=== PATIENT | female | born 1960 | race Caucasian/White ===

== ENCOUNTER 2022-07-06 21:31 | Inpatient (IN) ==
[2022-07-06] MEDS ORDERED: SODIUM CHLORIDE 0.9% 1000ML 1,000 ML IV ONE (21:59)
[2022-07-06] MEDS ORDERED: MoRPHine SULFATE 10 MG/ML CARP/VIAL IV STA (22:06)
[2022-07-06] MEDS ORDERED: PROMETHAZINE 25 MG/51 ML BAG IV STA (22:06)
[2022-07-06] MEDS ORDERED: ONDANSETRON INJ 2 MG/ML 2 ML VIAL IV STA (22:06)
--- NOTE | 2022-07-06 22:09 | Emergency Department Note ---
Impression & Plan Small bowel obstruction, Crohn's disease, Abdominal pain ED Provider Note NAME: ANABELL DAMICO AGE: 62 SEX: F : 1960 ARRIVES VIA: Walk-In INFORMANT: Patient ED PROVIDER(S): Kirt James DO CHIEF COMPLAINT: abdominal pain HPI: Patient is a 62-year-old female from [place] who presents to the ER for severe 10 out of 10 abdominal pain in the epigastric region associate with nausea and vomiting that started within the past 24 hours. History of Crohn's disease and multiple stents. Pain is constant. Denies any dysuria, urgency, or frequency. No other exacerbating or remitting factors. Chest pain or shortness of breath. This does feel like her previous bowel obstructions. ROS: See above HPI for pertinent positives & negatives. A total of 10 systems reviewed and were otherwise negative. PAST MEDICAL HISTORY:See Below PAST SURGICAL HISTORY:See Below FAMILY HISTORY:See Below SOCIAL HISTORY:See Below HOME MEDICATIONS:See Below ALLERGIES:See Below VITALS:See Below PHYSICAL EXAMINATION: GENERAL: Sitting up in bed, alert, vomiting EYE EXAM: normal conjunctiva. OROPHARYNX: Mucous membranes NECK: supple, no nuchal rigidity, no adenopathy, non-tender LUNGS: Clear to auscultation. Normal chest wall mechanics HEART: no murmurs, S1 normal and S2 normal ABDOMEN: abdomen soft, non-tender, normo-active bowel sounds, no masses, no rebound or guarding. UPPER EXTREMITIES: upper extremities are grossly normal. LOWER EXTREMITIES: No pitting edema. NEURO EXAM: Normal sensorium, cranial nerves II-XII grossly intact, normal speech, no gross weakness of arms, no gross weakness of legs. No drift. Finger to nose intact. Gross sensation intact. MEDICAL DECISION MAKING: Patient is a 8-year-old female who presents ER for abdominal pain nausea vomiting. IV was established blood work was obtained. Labs show no significant leukocytosis or anemia. BMP along with LFTs bilirubin lipase is unremarkable. UA was clean. Patient was positive for COVID. CT abdomen pelvis shows small bowel obstruction. This was discussed with Dr. Alonso reviewed with him in regards to the findings. He agreed with conservative management admission to the hospitalist. Discussed with hospitalist for further evaluation patient will be admitted for further work-up. She declined NG tube initially and was later agreeable when she spoke with the hospitalist. She was given IV fluids, morphine, Phenergan and Zofran. Triage Nursing notes reviewed. Limited review of prior medical records performed Vital Signs: reviewed and remarkable for tachy Differential diagnosis: Differential diagnoses includes but is not limited to gastritis, peptic ulcer disease, GERD, gallbladder disease, pancreatitis, small bowel obstruction, acute coronary syndrome, pericarditis, ischemic bowel, irritable bowel disease, irritable bowel syndrome, appendicitis, diverticulitis, malignancy, hernia, urinary tract infection, torsion, /ectopic (if female), perforation, trauma, infectious. ER treatment provided: See below Diagnostics interpreted by me: ECG: none Cardiac Monitoring: An order was placed for continuous cardiac monitoring. The monitor shows a rate of 90 with sinus rhythm. Laboratory studies: As stated above and show below. Imaging studies: CT abdomen pelvis shows small bowel obstruction Consultation(s): none Procedures: none Critical Care: None Past Med/Surg History Social History Smoking Status: Former smoker Preferred Language: [place] Feels Safe at Home: Yes Allergies Allergies Allergy/AdvReac Type Severity Reaction Status Date / Time No Known Allergies Allergy Unverified 07/06/22 23:32 Home Meds Home Medications Medication Instructions Recorded Confirmed L.acidophilus-B.animalis-B.longum 1 cap PO QAM 07/06/22 07/06/22 15 billion cell capsule (Florajen Digestion) azathioprine 50 mg tablet 150 mg PO QAM 07/06/22 07/06/22 calcium carbonate 600 mg calcium 600 mg PO HS 07/06/22 07/06/22 (1,500 mg) tablet calcium polycarbophil 625 mg 1,250 mg PO QAM 07/06/22 07/06/22 tablet (FiberCon) cholecalciferol (vitamin D3) 25 25 mcg PO HS 07/06/22 07/06/22 mcg (1,000 unit) chewable tablet (Vitamin D3) estradiol 0.5 mg tablet 0.5 mg PO QAM 07/06/22 07/06/22 folic acid 800 mcg tablet 0.8 mg PO HS 07/06/22 07/06/22 glucosamine-chondroitin 750 mg-600 1 tab PO HS 07/06/22 07/06/22 mg tablet lansoprazole 15 mg capsule,delayed 15 mg PO QAM 07/06/22 07/06/22 release levothyroxine 150 mcg tablet 150 mcg PO DAILYBB 07/06/22 07/06/22 omega-3 fatty acids 1,250 mg 1,250 mg PO HS 07/06/22 07/06/22 capsule polyethylene glycol 3350 17 17 g PO QAM 07/06/22 07/06/22 gram/dose oral powder (Miralax) pravastatin 40 mg tablet 40 mg PO HS 07/06/22 07/06/22 vedolizumab 300 mg intravenous 300 mg IV .EVERY 8 WEEKS 07/06/22 07/06/22 solution (Entyvio) Results & Data (ED) Vital Signs Vital Signs - 24 hr 07/06/22 21:33 07/06/22 22:45 Temperature 36.5 C Temperature Source Temporal Artery Scan Pulse Rate 104 H Pulse Rate [Apical] 91 H Respiratory Rate 20 16 Respiratory Effort / Characteristics Non-Labored Spontaneous Respiratory Depth Normal Respiratory Pattern Regular Blood Pressure 155/79 H Blood Pressure [Left Arm] 145/81 H Blood Pressure Mean 104 Blood Pressure Mean [Left Arm] 102 Blood Pressure Position Sitting Pulse Oximetry 95 96 Oxygen Delivery Method Room Air Room Air Sepsis Recent Fever Within 48 Hours No Sepsis New/Unexplained Change in Mental Status N/A Sepsis Action Taken by Nursing No Action Required Laboratory Data Result diagrams: 07/06/22 22:03 07/06/22 22:03 Lab Results 07/06/22 07/06/22 07/06/22 Range/Units 22:03 22:03 22:07 WBC 9.26 (4.8-10.8) K/ul RBC 4.72 (3.93-5.22) M/uL Hgb 14.4 (12.0-16.0) g/dl POC Hgb 15.3 (12.0-16.0) g/dl Hct 42.1 (34.1-44.9) % POC Hct 45 (37-47) % MCV 89.2 (80.0-100.0) fL MCH 30.5 (25.0-34.0) pg MCHC 34.2 (32.0-36.0) g/dL RDW Std Deviation 43.7 (36.4-46.3) fL RDW Coeff of Umair 13.2 (11.5-14.5) % Plt Count 230 (130-400) K/uL MPV 9.3 L (9.4-12.3) fL Immature Gran % (Auto) 0.4 % Neut % (Auto) 83.8 % Lymph % (Auto) 8.4 % [place] % (Auto) 6.4 % Eos % (Auto) 0.8 % Baso % (Auto) 0.2 % Neut # (Auto) 7.76 H (1.4-6.5) K/uL Lymph # (Auto) 0.78 L (1.2-3.4) K/uL [place] # (Auto) 0.59 (0.24-0.82) K/uL Eos # (Auto) 0.07 (0-0.50) K/uL Baso # (Auto) 0.02 (0-0.2) K/uL Immature Gran # (Auto) 0.04 H (0.00-0.02) K/uL POC Sodium 141 (135-144) mmol/L Sodium 140 (136-145) mmol/L POC Potassium 3.6 (3.3-5.0) mmol/L Potassium 3.6 (3.5-5.1) mmol/L POC Chloride 104 (101-112) mmol/L Chloride 103 (98-107) mmol/L Carbon Dioxide 24 (21-32) mmol/L POC Total CO2 24 (24-31) mmol/L Anion Gap 13 H (3-11) POC Anion Gap 18.0 (16-25) mmol/L POC BUN 15 (7-18) mg/dl BUN 15 (6-23) mg/dl Creatinine 0.85 (0.6-1.2) mg/dl POC Creatinine 0.8 (0.6-1.3) mg/dl Est Cr Clr Drug Dosing 82.2 ml/min Est GFR ( Amer) 86.3 ml/min Est GFR (Non-Af Amer) 74.5 ml/min BUN/Creatinine Ratio 17.6 (10-20) Glucose 100 H (70-99(Fasting)) mg/dl POC Glucose (other) 108 H (70-99) mg/dl Calcium 9.5 (8.5-10.1) mg/dl POC Ioniz Calcium Dona 1.16 (1.12-1.32) mmol/l Total Bilirubin 0.6 (0.2-1.0) mg/dl AST 38 (13-39) U/L ALT 40 (7-52) U/L Alkaline Phosphatase 57 (34-104) U/L Total Protein 7.5 (6.0-8.3) gm/dl Albumin 4.5 (3.4-5.0) gm/dl Globulin 3.0 (2.5-4.0) gm/dl Albumin/Globulin Ratio 1.5 (0.9-2) Lipase 19 (11-82) U/L Urine Color Urine Appearance (Clear) Urine pH (4.5-7.5) Ur Specific Jackson (1.000-1.030) Urine Protein (Negative) Urine Glucose (UA) (Negative) Urine Ketones (Negative) Urine Blood (Negative) Urine Nitrite (Negative) Urine Bilirubin (Negative) Urine Urobilinogen (Negative) Ur Leukocyte Esterase (Negative) Urine WBC (Auto) (0-5) /hpf Urine RBC (Auto) (0-4) /hpf U Hyaline Cast (Auto) (0-5) /lpf U Epithel Cells (Auto) (0-5) /lpf Urine Bacteria (Auto) (Negative) 07/06/22 Range/Units 22:46 WBC (4.8-10.8) K/ul RBC (3.93-5.22) M/uL Hgb (12.0-16.0) g/dl POC Hgb (12.0-16.0) g/dl Hct (34.1-44.9) % POC Hct (37-47) % MCV (80.0-100.0) fL MCH (25.0-34.0) pg MCHC (32.0-36.0) g/dL RDW Std Deviation (36.4-46.3) fL RDW Coeff of Umair (11.5-14.5) % Plt Count (130-400) K/uL MPV (9.4-12.3) fL Immature Gran % (Auto) % Neut % (Auto) % Lymph % (Auto) % [place] % (Auto) % Eos % (Auto) % Baso % (Auto) % Neut # (Auto) (1.4-6.5) K/uL Lymph # (Auto) (1.2-3.4) K/uL [place] # (Auto) (0.24-0.82) K/uL Eos # (Auto) (0-0.50) K/uL Baso # (Auto) (0-0.2) K/uL Immature Gran # (Auto) (0.00-0.02) K/uL POC Sodium (135-144) mmol/L Sodium (136-145) mmol/L POC Potassium (3.3-5.0) mmol/L Potassium (3.5-5.1) mmol/L POC Chloride (101-112) mmol/L Chloride (98-107) mmol/L Carbon Dioxide (21-32) mmol/L POC Total CO2 (24-31) mmol/L Anion Gap (3-11) POC Anion Gap (16-25) mmol/L POC BUN (7-18) mg/dl BUN (6-23) mg/dl Creatinine (0.6-1.2) mg/dl POC Creatinine (0.6-1.3) mg/dl Est Cr Clr Drug Dosing ml/min Est GFR ( Amer) ml/min Est GFR (Non-Af Amer) ml/min BUN/Creatinine Ratio (10-20) Glucose (70-99(Fasting)) mg/dl POC Glucose (other) (70-99) mg/dl Calcium (8.5-10.1) mg/dl POC Ioniz Calcium Dona (1.12-1.32) mmol/l Total Bilirubin (0.2-1.0) mg/dl AST (13-39) U/L ALT (7-52) U/L Alkaline Phosphatase (34-104) U/L Total Protein (6.0-8.3) gm/dl Albumin (3.4-5.0) gm/dl Globulin (2.5-4.0) gm/dl Albumin/Globulin Ratio (0.9-2) Lipase (11-82) U/L Urine Color Yellow Urine Appearance Clear (Clear) Urine pH 5.0 (4.5-7.5) Ur Specific Jackson 1.045 H (1.000-1.030) Urine Protein Negative (Negative) Urine Glucose (UA) Negative (Negative) Urine Ketones Negative (Negative) Urine Blood Trace H (Negative) Urine Nitrite Negative (Negative) Urine Bilirubin Negative (Negative) Urine Urobilinogen Negative (Negative) Ur Leukocyte Esterase Negative (Negative) Urine WBC (Auto) 1-5 (0-5) /hpf Urine RBC (Auto) 0-4 (0-4) /hpf U Hyaline Cast (Auto) 1-5 (0-5) /lpf U Epithel Cells (Auto) 5-10 H (0-5) /lpf Urine Bacteria (Auto) Negative (Negative) Administered Medications Discontinued Medications Sodium Chloride (Nss 1000ml) 1,000 mls @ 999 mls/hr IV .Q1H1M ONE Stop: 07/06/22 22:59 Last Infusion: 07/06/22 23:50 Dose: 0 mls/hr Documented By: Admin: 07/06/22 22:43 Dose: 999 mls/hr Documented By: JOHN Promethazine HCl (Phenergan) 25 mg in 51 mls @ 204 mls/hr IV NOW STA Stop: 07/06/22 22:20 Last Infusion: 07/06/22 23:09 Dose: 0 mls/hr Documented By: Admin: 07/06/22 22:43 Dose: 204 mls/hr Documented By: JOHN Acetaminophen (Ofirmev) 1,000 mg in 100 mls @ 400 mls/hr IV NOW STA Stop: 07/07/22 00:18 Last Infusion: 07/07/22 00:57 Dose: 0 mls/hr Documented By: Admin: 07/07/22 00:32 Dose: 400 mls/hr Documented By: JOHN Ioversol (Optiray 300 100ml) 93 ml IV ONCE ONE Stop: 07/06/22 22:29 Last Admin: 07/06/22 22:29 Dose: 93 ml Documented By: QUOC Ketorolac Tromethamine (Ketorolac Tromethamine 15 Mg/Ml Vial) 15 mg IV NOW ONE Stop: 07/07/22 00:05 Last Admin: 07/07/22 00:33 Dose: 15 mg Documented By: JOHN Morphine Sulfate (Morphine Sulfate 10 Mg/Ml Carp/Vial) 6 mg IV NOW STA Stop: 07/06/22 22:07 Last Admin: 07/06/22 22:20 Dose: 6 mg Documented By: JOHN Ondansetron HCl (Ondansetron Inj 2 Mg/Ml 2 Ml Vial) 4 mg IV NOW STA Stop: 07/06/22 22:07 Last Admin: 07/06/22 22:20 Dose: 4 mg Documented By: JOHN Imaging Data Radiologist's Impression: Abdomen/Pelvis CT 07/06/22 21:[address] WITH IV CONTRAST CT DOSE: 732.21 mGy.cm HISTORY: Acute generalized abdominal pain abd TECHNIQUE: Multiaxial CT images of the abdomen and pelvis were performed following the IV administration of 93 cc of Optiray, A dose lowering technique was utilized adhering to the principles of ALARA. COMPARISON STUDY: None. FINDINGS: Clear lung bases. No pneumatosis or pneumoperitoneum identified. The spleen, pancreas and adrenal glands are unremarkable. Cholecystectomy. Mild, duct dilation, likely postsurgical. Hepatic steatosis. No evidence of cirrhosis. Patent portal vein. 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 No urolith or hydronephrosis. Partial distention of the urinary bladder. Hysterectomy. No adnexal mass lesions. No abdominal aortic aneurysm or lymphadenopathy. The majority of the large bowel is decompressed. The appendix is not definitively seen. Mural fibrofatty changes of the terminal ileum which is also decompressed. There are a few dilated air and fluid-filled and stool-filled loops of small bowel within the lower abdomen and pelvis, the most dilated loop measuring 4.5 cm transversely on image 361. This just proximal to angular transition point within the abdominal left lower quadrant on image 307. Mild interloop edema. A few small bowel loops demonstrate mildly thickened rodríguez. Unremarkable soft tissues. No acute fracture. IMPRESSION: 1. At least moderate grade small bowel obstruction with transition point within the abdominal left lower quadrant, likely secondary to small bowel adhesions. 2. Mild interloop edema with a few loops of small bowel demonstrating mild wall thickening. 3. No pneumoperitoneum. 4. Hepatic steatosis. 5. Cholecystectomy. ACT 112: Negative or not required by law. The above report was generated using voice recognition software. It may contain grammatical, syntax or spelling errors. Electronically signed by: Gal Luciano M.D. 07/06/2022 10:58 PM Discharge Plan Visit Data Chief Complaint: Abdominal Pain Stated Complaint: BOWEL PROBLEMS ED Provider: Kirt James Discharge Problem: Small bowel obstruction, Crohn's disease, Abdominal pain Patient Disposition: Admitted As Inpatient Discharge Instructions Interventions: ED Discharge Assessment Last Done: 07/07/22 01:15
[2022-07-06 22:15] LABS: Basophils # (auto) 0.02 K/uL (0-0.2); Basophils % (auto) 0.2 %; Eosinophils # (auto) 0.07 K/uL (0-0.50); Eosinophils % (auto) 0.8 %; Hematocrit (blood only) 42.1 % (34.1-44.9); Hemoglobin 14.4 g/dl (12.0-16.0); Immature Granulocytes # (auto) 0.04 K/uL (0.00-0.02); Immature Granulocytes % (auto) 0.4 %; Lymphocytes # (auto) 0.78 K/uL (1.2-3.4); Lymphocytes % (auto) 8.4 %; Mean Corpuscular Hemoglobin 30.5 pg (25.0-34.0); Mean Corpuscular Hgb Conc 34.2 g/dL (32.0-36.0); Mean Corpuscular Volume 89.2 fL (80.0-100.0); Mean Platelet Volume 9.3 fL (9.4-12.3); Monocytes # (auto) 0.59 K/uL (0.24-0.82); Monocytes % (auto) 6.4 %; Neutrophils # (auto) 7.76 K/uL (1.4-6.5); Neutrophils % (auto) 83.8 %; Platelet Count 230 K/uL (130-400); RDW Coefficient of Variation 13.2 % (11.5-14.5); RDW Standard Deviation 43.7 fL (36.4-46.3); Red Blood Count 4.72 M/uL (3.93-5.22); White Blood Count 9.26 K/ul (4.8-10.8)
[2022-07-06 22:20] LABS: iSTAT Creatinine 0.8 mg/dl (0.6-1.3); iSTAT Hemoglobin 15.3 g/dl (12.0-16.0); iSTAT Ionized Calcium 1.16 mmol/l (1.12-1.32); iSTAT Potassium 3.6 mmol/L (3.3-5.0)
[2022-07-06] MEDS ORDERED: OPTIRAY 300 100mL IV ONE (22:28)
[2022-07-06 22:36] LABS: Albumin Globulin Ratio 1.5 (0.9-2); Albumin Level 4.5 gm/dl (3.4-5.0); BUN Creatinine Ratio 17.6 (10-20); Bilirubin,Total 0.6 mg/dl (0.2-1.0); Calcium 9.5 mg/dl (8.5-10.1); Creatinine Clr Calc Pharmacy 82.2 ml/min; Est GFR (African American) 86.3 ml/min; Est GFR (Non-African American) 74.5 ml/min; Potassium 3.6 mmol/L (3.5-5.1); Total Protein 7.5 gm/dl (6.0-8.3)
--- NOTE | 2022-07-06 23:00 | CT Scan Report ---
ABDOMEN AND PELVIS CT WITH IV CONTRAST CT DOSE: 732.21 mGy.cm HISTORY: Acute generalized abdominal pain abd TECHNIQUE: Multiaxial CT images of the abdomen and pelvis were performed following the IV administrat ion of 93 cc of Optiray, A dose lowering technique was utilized adhering to the principles of ALARA. COMPARISON STUDY: None. FINDINGS: Clear lung bases. No pneumatosis or pneumoperitoneum identified. The spleen, pancreas and a drenal glands are unremarkable. Cholecystectomy. Mild, duct dilation, likely postsurgical. Hepatic st eatosis. No evidence of cirrhosis. Patent portal vein. 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 No urolith or hydronephrosis. Partia l distention of the urinary bladder. Hysterectomy. No adnexal mass lesions. No abdominal aortic aneur ysm or lymphadenopathy. The majority of the large bowel is decompressed. The appendix is not definitively seen. Mural fibrofa tty changes of the terminal ileum which is also decompressed. There are a few dilated air and fluid-f illed and stool-filled loops of small bowel within the lower abdomen and pelvis, the most dilated loo p measuring 4.5 cm transversely on image 361. This just proximal to angular transition point within t he abdominal left lower quadrant on image 307. Mild interloop edema. A few small bowel loops demonstr ate mildly thickened rodríguez. Unremarkable soft tissues. No acute fracture. IMPRESSION: 1. At least moderate grade small bowel obstruction with transition point within the abdominal left lo wer quadrant, likely secondary to small bowel adhesions. 2. Mild interloop edema with a few loops of small bowel demonstrating mild wall thickening. 3. No pneumoperitoneum. 4. Hepatic steatosis. 5. Cholecystectomy. ACT 112: Negative or not required by law. The above report was generated using voice recognition software. It may contain grammatical, syntax o r spelling errors. Electronically signed by: Gal Luciano M.D. 07/06/2022 10:58 PM
[2022-07-06 23:08] LABS: Appearance Urine Clear (Clear); Bacteria Urine Automated Negative (Negative); Bilirubin Urine Negative (Negative); Blood Urine Trace (Negative); Color Urine Yellow; Glucose Urine UA Negative (Negative); Ketones Urine Negative (Negative); Leukocyte Esterase Urine Negative (Negative); Nitrite Urine Negative (Negative); Protein Urine Negative (Negative); RBC Urine Automated 0-4 /hpf (0-4); Specific Gravity Urine 1.045 (1.000-1.030); Urobilinogen Urine Negative (Negative)
--- NOTE | 2022-07-06 23:34 | History & Physical Report ---
Date of Service July 06, 2022 Assessment & Plan (1) Small bowel obstruction: Plan: This is 62-year-old female with a history of Crohn's disease, appendectomy, cholecystectomy, hysterectomy, known abdominal adhesions, prior SBOs, hypothyroidism per her report who presented to [facility] for evaluation of abdominal pain, subsequently found to have moderate-grade SBO on CT-A/P likely secondary to abdominal adhersions. Small Bowel Obstruction Patient with significant history of prior SBOs at home, appendectomy, cholecystectomy, hysterectomy, Crohn's disease, and known abdominal adhesions Contrast-enhanced CT of the abdomen and pelvis demonstrated moderate grade small bowel obstruction with transition point within the left lower quadrant, interloop edema. Status post NG tube placement in the ED, continue on low intermittent suction Consult general surgery (spoken to by ED provider) Pain control: Tylenol 1 g every 8 LEO, Toradol 15 every 6 PRN, morphine 4 mg for breakthrough pain PRN LR @ 100cc/hr N.p.o. Monitor electrolytes, replete PRN (2) Crohn's disease: Plan: Controlled on Entyvio every 8 weeks, as well as azathioprine Hold medications while n.p.o. (3) Hypothyroid: Plan: Hold levothyroxine, resume when able (4) Hyperlipidemia: Plan: Hold pravastatin while n.p.o. Patient dose have known history of NAFLD Plan Code: Full code Dispo: MedSurg Prophylaxis: SCDsof note, patient is on estradiol 0.5 mg daily Diet: Strict n.p.o., NG tube in place Consults: General surgery History of Present Illness Primary Care Provider: NO PCP This is 62-year-old female with a history of Crohn's disease, appendectomy, cholecystectomy, hysterectomy, known abdominal adhesions, prior SBOs, hypothyroidism per her report who presented to [facility] for evaluation of abdominal pain. Patient says that beginning last night, she began having twinges of abdominal pain and intermittent nausea. She was up visiting with her parents for the football game this weekend, when she gradually developed a worse and worse abdominal pain. She said that prior to coming in, it was near a 10 out of 10. Unfortunately, she reports a history of multiple small bowel obstructions; at her local ED at home, she is normally able to receive pain medications and be discharged from the ED without being admitted. This time, however, despite pain medications received in the ED, she continues to have abdominal pain and nausea. The pain is generalized. Her last bowel movement was yesterday. She denies any recent fevers, chills, night sweats, chest pain, palpitations, shortness of breath, urinary issues, bowel issues. Medications reviewed and include azathioprine, calcium carbonate, FiberCon, vitamin D3, estradiol, folic acid, glucosamine, probiotic, lansoprazole, levothyroxine, fish oil, MiraLAX, pravastatin, Entyvio every 8 weeks. She denies regular use of alcohol. She had 2 alcoholic beverages earlier today. She denies use of recreational drugs or tobacco products. In the ED, patient was found to be mildly hypertensive with a heart rate of 104. Afebrile. Labs demonstrated mildly elevated anion gap at 13, but otherwise without significant abnormalities. Contrast-enhanced CT of the abdomen and pelvis demonstrated moderate grade small bowel obstruction with transition point within the left lower quadrant, interloop edema. She was given Zofran, morphine, 1 L NSS, promethazine. ED provider spoke with on-call general surgery, who agreed to see patient in the morning. After speaking with her more, she was amenable to receive an NG tube. Patient did mention to me that this will likely be the last game her parents are able to go to, and would optimally like to leave as soon as medically stable and pain is under control. Allergies Allergy/AdvReac Type Severity Reaction Status Date / Time No Known Allergies Allergy Unverified 07/06/22 23:32 Home Medications Medication Instructions Recorded Confirmed Type L.acidophilus-B.animalis-B.longum 1 cap PO QAM 07/06/22 07/06/22 History 15 billion cell capsule (Florajen Digestion) azathioprine 50 mg tablet 150 mg PO QAM 07/06/22 07/06/22 History calcium carbonate 600 mg calcium 600 mg PO HS 07/06/22 07/06/22 History (1,500 mg) tablet calcium polycarbophil 625 mg 1,250 mg PO QAM 07/06/22 07/06/22 History tablet (FiberCon) cholecalciferol (vitamin D3) 25 25 mcg PO HS 07/06/22 07/06/22 History mcg (1,000 unit) chewable tablet (Vitamin D3) estradiol 0.5 mg tablet 0.5 mg PO QAM 07/06/22 07/06/22 History folic acid 800 mcg tablet 0.8 mg PO HS 07/06/22 07/06/22 History glucosamine-chondroitin 750 mg-600 1 tab PO HS 07/06/22 07/06/22 History mg tablet lansoprazole 15 mg capsule,delayed 15 mg PO QAM 07/06/22 07/06/22 History release levothyroxine 150 mcg tablet 150 mcg PO DAILYBB 07/06/22 07/06/22 History omega-3 fatty acids 1,250 mg 1,250 mg PO HS 07/06/22 07/06/22 History capsule polyethylene glycol 3350 17 17 g PO QAM 07/06/22 07/06/22 History gram/dose oral powder (Miralax) pravastatin 40 mg tablet 40 mg PO HS 07/06/22 07/06/22 History vedolizumab 300 mg intravenous 300 mg IV .EVERY 8 WEEKS 07/06/22 07/06/22 History solution (Entyvio) Past Med/Surg History Social History Smoking Status: Former smoker Preferred Language: Luxembourgish Feels Safe at Home: Yes Review of Systems Review of Systems: as per HPI Physical Exam Physical Exam: General: 62-year old female who is alert, oriented, and appears in mild distress secondary to abdominal discomfort. HEENT: NCAT. - Eyes - Sclera are white, anicteric, and without injection. - Mouth - MMM - Neck - supple, no appreciable JVD Cardiac: Normal rate and regular rhythm; S1 and S2 present with no murmurs, rubs, or gallops. Pulmonary: Good respiratory effort with symmetric expansion of the chest. No use of accessory muscles. Lungs were clear to auscultation bilaterally with no crackles or wheezes. Abdominal: Normoactive bowel sounds. Abdomen was soft, nondistended. Mild TTP in the LLQ/suprapubic area. Extremities: Upper and lower extremities are warm and well perfused. 60 peripheral edema in the lower extremities bilaterally Psych: Well-developed, well-nourished, appropriately dressed for occasion. Behavior is cooperative and appropriate. Affect is WNL. Insight is appropriate. Results & Data Results & Data ([facility]) Vital Signs (Past 12 Hours) Vital Signs Temp Pulse Pulse Resp BP Pulse Ox O2 Del Method 07/06/22 22:45 91 H 16 96 Room Air 07/06/22 21:33 36.5 C 104 H 20 155/79 H 95 Room Air Resident Activity Tracking Resident Involvement: Resident Care Provided Care Provided: Adult Hospital Medicine
[2022-07-07] MEDS ORDERED: KETOROLAC TROMETHAMINE 15 MG/ML VIAL IV ONE (00:04)
[2022-07-07] MEDS ORDERED: ACETAMINOPHEN 1,000 MG/100 ML VIAL IV STA (00:04)
[2022-07-07] MEDS ORDERED: LACTATED RINGER'S 1,000 ML IV SCH (00:15)
[2022-07-07] MEDS ORDERED: ONDANSETRON INJ 2 MG/ML 2 ML VIAL IV PRN (01:36)
[2022-07-07] MEDS ORDERED: MoRPHine SULFATE 4 MG/ML 1 ML CARP\\VIAL IV PRN ×2 (01:36→07:18)
[2022-07-07] MEDS ORDERED: KETOROLAC TROMETHAMINE 15 MG/ML VIAL IV PRN (01:36)
--- NOTE | 2022-07-07 03:45 | Billing Data ---
Date of Service July 06, 2022 Coding Level of Care Code 38066 Initial Inpt Care Lvl 2
[2022-07-07] MEDS ORDERED: MoRPHine SULFATE 2 MG/ML CARP IV PRN (07:18)
--- NOTE | 2022-07-07 07:18 | Hospitalist Progress Note ---
Date of Service July 07, 2022 Assessment & Plan (1) Small bowel obstruction: Plan: This is 62-year-old female with a history of Crohn's disease, appendectomy, cholecystectomy, hysterectomy, known abdominal adhesions, prior SBOs, hypothyroidism per her report who presented to [facility] for evaluation of abdominal pain, subsequently found to have moderate-grade SBO on CT-A/P likely secondary to abdominal adhersions. Small Bowel Obstruction Patient with significant history of prior SBOs at home, appendectomy, cholecystectomy, hysterectomy, Crohn's disease, and known abdominal adhesions Contrast-enhanced CT of the abdomen and pelvis demonstrated moderate grade small bowel obstruction with transition point within the left lower quadrant, interloop edema. Status post NG tube placement in the ED, continue on low intermittent suction Consult general surgery (spoken to by ED provider) Pain control: Tylenol 1 g every 8 LEO, Toradol 15 every 6 PRN, morphine 4 mg for breakthrough pain PRN LR @ 100cc/hr N.p.o. Monitor electrolytes, replete PRN (2) Crohn's disease: Plan: Controlled on Entyvio every 8 weeks, as well as azathioprine Hold medications while n.p.o. (3) Hypothyroid: Plan: Hold levothyroxine, resume when able (4) Hyperlipidemia: Plan: Hold pravastatin while n.p.o. Patient dose have known history of NAFLD Plan Code: Full code Dispo: MedSurg Prophylaxis: SCDsof note, patient is on estradiol 0.5 mg daily Diet: Strict n.p.o., NG tube in place Consults: General surgery Admission and Anticipated Discharge Date Admission Date: July 06, 2022 Results & Data Results & Data ([facility]) Vital Signs (Past 12 Hours) Vital Signs Temp Pulse Pulse Pulse Resp BP BP 07/07/22 01:20 07/07/22 01:20 07/07/22 01:20 98.4 F 115 H 18 128/81 07/07/22 01:13 87 16 129/65 07/07/22 00:00 100 H 17 122/101 H 07/06/22 22:45 91 H 16 145/81 H 07/06/22 21:33 97.7 F 104 H 20 155/79 H Pulse Ox O2 Del Method 07/07/22 01:20 Room Air 09/10/22 01:20 Room Air 07/07/22 01:20 98 Room Air 07/07/22 01:13 95 07/07/22 00:00 96 Room Air 07/06/22 22:45 96 Room Air 07/06/22 21:33 95 Room Air PG Care Time/CCT Total # of Minutes Spent Total Time Spent with Patient: Total time spent is greater than 50% in coordination of care (as documented) at patient's floor/unit and/or counseling patient: Coding Diagnoses Small bowel obstruction K56.609 Crohn's disease K50.90 Hypothyroid E03.9 Hyperlipidemia E78.5
[2022-07-07] MEDS ORDERED: ACETAMINOPHEN 1,000 MG/100 ML VIAL IV SCH (08:00)
--- NOTE | 2022-07-07 08:11 | XRay Report ---
KUB CLINICAL HISTORY: NGT placement COMPARISON STUDY: CT of the abdomen and pelvis July 06, 2022. FINDINGS: The tip of the nasogastric tube is within the body of the stomach. There is contrast within the collecting systems, ureters and bladder from recent contrast-enhanced CT. There are suspected fl uid-filled dilated loops of small bowel, better depicted on CT. IMPRESSION: 1. Tip of nasogastric tube within the body of the stomach. 2. Suspected fluid-filled dilated loops of small bowel, better depicted on CT. ACT 112: Negative or not required by law. Electronically signed by: Bryant Fagan M.D. 07/07/2022 8:09 AM
[2022-07-07 08:44] LABS: Basophils # (auto) 0.01 K/uL (0-0.2); Basophils % (auto) 0.2 %; Eosinophils # (auto) 0.03 K/uL (0-0.50); Eosinophils % (auto) 0.6 %; Hematocrit (blood only) 37.9 % (34.1-44.9); Hemoglobin 12.8 g/dl (12.0-16.0); Immature Granulocytes # (auto) 0.03 K/uL (0.00-0.02); Immature Granulocytes % (auto) 0.6 %; Lymphocytes # (auto) 0.17 K/uL (1.2-3.4); Lymphocytes % (auto) 3.3 %; Mean Corpuscular Hemoglobin 30.1 pg (25.0-34.0); Mean Corpuscular Hgb Conc 33.8 g/dL (32.0-36.0); Mean Corpuscular Volume 89.2 fL (80.0-100.0); Mean Platelet Volume 9.6 fL (9.4-12.3); Monocytes # (auto) 0.75 K/uL (0.24-0.82); Monocytes % (auto) 14.7 %; Neutrophils # (auto) 4.12 K/uL (1.4-6.5); Neutrophils % (auto) 80.6 %; Platelet Count 175 K/uL (130-400); RDW Coefficient of Variation 13.9 % (11.5-14.5); Red Blood Count 4.25 M/uL (3.93-5.22); White Blood Count 5.11 K/ul (4.8-10.8)
[2022-07-07 09:02] LABS: Albumin Globulin Ratio 1.6 (0.9-2); Albumin Level 3.8 gm/dl (3.4-5.0); BUN Creatinine Ratio 26.3 (10-20); Bilirubin,Total 0.6 mg/dl (0.2-1.0); Calcium 8.4 mg/dl (8.5-10.1); Creatinine Clr Calc Pharmacy 87.2 ml/min; Est GFR (African American) 92.9 ml/min; Est GFR (Non-African American) 80.1 ml/min; Globulin 2.4 gm/dl (2.5-4.0); Magnesium 1.3 mg/dl (1.7-2.4); Phosphorus 3.7 mg/dl (2.5-4.9); Potassium 3.7 mmol/L (3.5-5.1); Total Protein 6.2 gm/dl (6.0-8.3)
[2022-07-07] MEDS ORDERED: ALUMINUM/MAGNESIUM SUSP 30 ML UDC PO STA (11:26)
--- NOTE | 2022-07-07 13:03 | Surgery Consultation ---
Date of Consultation July 07, 2022 Assessment & Plan (1) Crohn's disease: (2) Small bowel obstruction: (3) Asymptomatic COVID-19 virus infection: Plan 8-year-old woman with a longstanding history of partial adhesive small bowel obstructions due to prior surgical history presents with a small bowel obstruction. She has had 2 large bowel movements and is passing flatus since yesterday evening. She has been advanced to clears. We will advance her diet as tolerated. She is anxious to return home. If she does well with food, we will discharge her later on this afternoon. History of Present Illness Reason for Consultation: Small bowel obstruction/Crohn's disease Requesting Physician: Kirt James MD Attending Physician: Yeyo Lomas MD History of Present Illness 62-year-old woman presents with nausea, vomiting, and pain in her abdomen. She has an extensive surgical history dating back to when she was 17 years old. Perforated appendicitis, subsequent hysterectomy, and has had multiple partial to complete small bowel obstructions in the past due to adhesions. The majority of these have resolved with conservative management. She denies fevers or chills. The pain came on suddenly yesterday. Of note, she tested positive for COVID in the emergency department. She has no symptoms of fevers, chills, shortness of breath, chest pain, runny nose, cough, sore throat. Upon seeing her this morning, she has passed 2 large bowel movements and the pain has resolved. Allergies Allergy/AdvReac Type Severity Reaction Status Date / Time No Known Allergies Allergy Unverified 07/06/22 23:32 Home Medications Medication Instructions Recorded Confirmed Type L.acidophilus-B.animalis-B.longum 1 cap PO QAM 07/06/22 07/06/22 History 15 billion cell capsule (Florajen Digestion) azathioprine 50 mg tablet 150 mg PO QAM 07/06/22 07/06/22 History calcium carbonate 600 mg calcium 600 mg PO HS 07/06/22 07/06/22 History (1,500 mg) tablet calcium polycarbophil 625 mg 1,250 mg PO QAM 07/06/22 07/06/22 History tablet (FiberCon) cholecalciferol (vitamin D3) 25 25 mcg PO HS 07/06/22 07/06/22 History mcg (1,000 unit) chewable tablet (Vitamin D3) estradiol 0.5 mg tablet 0.5 mg PO QAM 07/06/22 07/06/22 History folic acid 800 mcg tablet 0.8 mg PO HS 07/06/22 07/06/22 History glucosamine-chondroitin 750 mg-600 1 tab PO HS 07/06/22 07/06/22 History mg tablet lansoprazole 15 mg capsule,delayed 15 mg PO QAM 07/06/22 07/06/22 History release levothyroxine 150 mcg tablet 150 mcg PO DAILYBB 07/06/22 07/06/22 History omega-3 fatty acids 1,250 mg 1,250 mg PO HS 07/06/22 07/06/22 History capsule polyethylene glycol 3350 17 17 g PO QAM 07/06/22 07/06/22 History gram/dose oral powder (Miralax) pravastatin 40 mg tablet 40 mg PO HS 07/06/22 07/06/22 History vedolizumab 300 mg intravenous 300 mg IV .EVERY 8 WEEKS 07/06/22 07/06/22 History solution (Entyvio) Patient History Medical History Crohn's disease Hyperlipidemia Hypothyroid Small bowel obstruction Surgical History History of appendectomy History of cholecystectomy History of hysterectomy Social History Smoking Status: Former smoker Cigarettes Per Day: 10; Smoking End Date: 30 years ago.; Second Hand Exposure: No; Do You Dip or Chew Tobacco: No; Tobacco Cessation Education Requested by Patient: No Hx Alcohol Use: Yes Alcohol type: wine Hx Substance Use: No Preferred Language: Niuean Communication Ability: Effective Adobe Cq Developer Required: No Beliefs That Will Affect Care: None Current Living Situation: Spouse Other Information That Helps Us Care for You: No Feels Safe at Home: Yes Safety Concerns: Feels Safe At This Time Assistive Devices: Contacts Review of Systems Review of Systems: All systems reviewed & are unremarkable except as noted in HPI & below Physical Exam Constitutional: WD/WN, vitals as above Neck: trachea midline, no thyromegaly Respiratory: normal respiratory effort; no respiratory distress and no labored breathing Cardiovascular: Rate/Rhythm: regular rate and regular rhythm Gastrointestinal (Abdomen): Inspection/Auscultation: abdomen normal to inspection; abdomen not distended Percussion/Palpation: abdomen soft; abdomen nontender, no guarding and abdomen not rigid Musculoskeletal: Extremities: no cyanosis and no clubbing Skin: no rashes, warm and dry Psychiatric: A+Ox3, euthymic affect Results & Data ([facility]) Vital Signs (Past 12 Hours) Vital Signs Temp Pulse Pulse Resp BP Pulse Ox O2 Del Method 07/07/22 08:20 36.9 C 114 H 16 110/71 93 Room Air 07/07/22 01:20 Room Air 07/07/22 01:20 Room Air 07/07/22 01:20 36.9 C 115 H 18 128/81 98 Room Air 07/07/22 01:13 87 16 129/65 95 Laboratory Results 07/07/22 07/07/22 07/07/22 Range/Units 07:55 07:55 00:36 WBC 5.11 (4.8-10.8) K/ul RBC 4.25 (3.93-5.22) M/uL Hgb 12.8 (12.0-16.0) g/dl POC Hgb (12.0-16.0) g/dl Hct 37.9 (34.1-44.9) % POC Hct (37-47) % MCV 89.2 (80.0-100.0) fL MCH 30.1 (25.0-34.0) pg MCHC 33.8 (32.0-36.0) g/dL RDW Std Deviation 45.0 (36.4-46.3) fL RDW Coeff of Umair 13.9 (11.5-14.5) % Plt Count 175 (130-400) K/uL MPV 9.6 (9.4-12.3) fL Immature Gran % (Auto) 0.6 % Neut % (Auto) 80.6 % Lymph % (Auto) 3.3 % Frontier % (Auto) 14.7 % Eos % (Auto) 0.6 % Baso % (Auto) 0.2 % Neut # (Auto) 4.12 (1.4-6.5) K/uL Lymph # (Auto) 0.17 L (1.2-3.4) K/uL Frontier # (Auto) 0.75 (0.24-0.82) K/uL Eos # (Auto) 0.03 (0-0.50) K/uL Baso # (Auto) 0.01 (0-0.2) K/uL Immature Gran # (Auto) 0.03 H (0.00-0.02) K/uL POC Sodium (135-144) mmol/L Sodium 140 (136-145) mmol/L POC Potassium (3.3-5.0) mmol/L Potassium 3.7 (3.5-5.1) mmol/L POC Chloride (101-112) mmol/L Chloride 104 (98-107) mmol/L Carbon Dioxide 27 (21-32) mmol/L POC Total CO2 (24-31) mmol/L Anion Gap 9 (3-11) POC Anion Gap (16-25) mmol/L POC BUN (7-18) mg/dl BUN 21 (6-23) mg/dl Creatinine 0.80 (0.6-1.2) mg/dl POC Creatinine (0.6-1.3) mg/dl Est Cr Clr Drug Dosing 87.2 ml/min Est GFR ( Amer) 92.9 ml/min Est GFR (Non-Af Amer) 80.1 ml/min BUN/Creatinine Ratio 26.3 H (10-20) Glucose 111 H (70-99(Fasting)) mg/dl POC Glucose (other) (70-99) mg/dl Calcium 8.4 L (8.5-10.1) mg/dl POC Ioniz Calcium Dona (1.12-1.32) mmol/l Phosphorus 3.7 (2.5-4.9) mg/dl Magnesium 1.3 L (1.7-2.4) mg/dl Total Bilirubin 0.6 (0.2-1.0) mg/dl AST 35 (13-39) U/L ALT 38 (7-52) U/L Alkaline Phosphatase 39 (34-104) U/L Total Protein 6.2 (6.0-8.3) gm/dl Albumin 3.8 (3.4-5.0) gm/dl Globulin 2.4 L (2.5-4.0) gm/dl Albumin/Globulin Ratio 1.6 (0.9-2) Lipase (11-82) U/L Urine Color Urine Appearance (Clear) Urine pH (4.5-7.5) Ur Specific [place] (1.000-1.030) Urine Protein (Negative) Urine Glucose (UA) (Negative) Urine Ketones (Negative) Urine Blood (Negative) Urine Nitrite (Negative) Urine Bilirubin (Negative) Urine Urobilinogen (Negative) Ur Leukocyte Esterase (Negative) Urine WBC (Auto) (0-5) /hpf Urine RBC (Auto) (0-4) /hpf U Hyaline Cast (Auto) (0-5) /lpf U Epithel Cells (Auto) (0-5) /lpf Urine Bacteria (Auto) (Negative) SARS-CoV-2, RNA, NAAT POSITIVE A* (NEGATIVE) 07/06/22 07/06/22 07/06/22 Range/Units 22:46 22:07 22:03 WBC (4.8-10.8) K/ul RBC (3.93-5.22) M/uL Hgb (12.0-16.0) g/dl POC Hgb 15.3 (12.0-16.0) g/dl Hct (34.1-44.9) % POC Hct 45 (37-47) % MCV (80.0-100.0) fL MCH (25.0-34.0) pg MCHC (32.0-36.0) g/dL RDW Std Deviation (36.4-46.3) fL RDW Coeff of Umair (11.5-14.5) % Plt Count (130-400) K/uL MPV (9.4-12.3) fL Immature Gran % (Auto) % Neut % (Auto) % Lymph % (Auto) % Frontier % (Auto) % Eos % (Auto) % Baso % (Auto) % Neut # (Auto) (1.4-6.5) K/uL Lymph # (Auto) (1.2-3.4) K/uL Frontier # (Auto) (0.24-0.82) K/uL Eos # (Auto) (0-0.50) K/uL Baso # (Auto) (0-0.2) K/uL Immature Gran # (Auto) (0.00-0.02) K/uL POC Sodium 141 (135-144) mmol/L Sodium 140 (136-145) mmol/L POC Potassium 3.6 (3.3-5.0) mmol/L Potassium 3.6 (3.5-5.1) mmol/L POC Chloride 104 (101-112) mmol/L Chloride 103 (98-107) mmol/L Carbon Dioxide 24 (21-32) mmol/L POC Total CO2 24 (24-31) mmol/L Anion Gap 13 H (3-11) POC Anion Gap 18.0 (16-25) mmol/L POC BUN 15 (7-18) mg/dl BUN 15 (6-23) mg/dl Creatinine 0.85 (0.6-1.2) mg/dl POC Creatinine 0.8 (0.6-1.3) mg/dl Est Cr Clr Drug Dosing 82.2 ml/min Est GFR ( Amer) 86.3 ml/min Est GFR (Non-Af Amer) 74.5 ml/min BUN/Creatinine Ratio 17.6 (10-20) Glucose 100 H (70-99(Fasting)) mg/dl POC Glucose (other) 108 H (70-99) mg/dl Calcium 9.5 (8.5-10.1) mg/dl POC Ioniz Calcium Dona 1.16 (1.12-1.32) mmol/l Phosphorus (2.5-4.9) mg/dl Magnesium (1.7-2.4) mg/dl Total Bilirubin 0.6 (0.2-1.0) mg/dl AST 38 (13-39) U/L ALT 40 (7-52) U/L Alkaline Phosphatase 57 (34-104) U/L Total Protein 7.5 (6.0-8.3) gm/dl Albumin 4.5 (3.4-5.0) gm/dl Globulin 3.0 (2.5-4.0) gm/dl Albumin/Globulin Ratio 1.5 (0.9-2) Lipase 19 (11-82) U/L Urine Color Yellow Urine Appearance Clear (Clear) Urine pH 5.0 (4.5-7.5) Ur Specific [place] 1.045 H (1.000-1.030) Urine Protein Negative (Negative) Urine Glucose (UA) Negative (Negative) Urine Ketones Negative (Negative) Urine Blood Trace H (Negative) Urine Nitrite Negative (Negative) Urine Bilirubin Negative (Negative) Urine Urobilinogen Negative (Negative) Ur Leukocyte Esterase Negative (Negative) Urine WBC (Auto) 1-5 (0-5) /hpf Urine RBC (Auto) 0-4 (0-4) /hpf U Hyaline Cast (Auto) 1-5 (0-5) /lpf U Epithel Cells (Auto) 5-10 H (0-5) /lpf Urine Bacteria (Auto) Negative (Negative) SARS-CoV-2, RNA, NAAT (NEGATIVE) 07/06/22 Range/Units 22:03 WBC 9.26 (4.8-10.8) K/ul RBC 4.72 (3.93-5.22) M/uL Hgb 14.4 (12.0-16.0) g/dl POC Hgb (12.0-16.0) g/dl Hct 42.1 (34.1-44.9) % POC Hct (37-47) % MCV 89.2 (80.0-100.0) fL MCH 30.5 (25.0-34.0) pg MCHC 34.2 (32.0-36.0) g/dL RDW Std Deviation 43.7 (36.4-46.3) fL RDW Coeff of Umair 13.2 (11.5-14.5) % Plt Count 230 (130-400) K/uL MPV 9.3 L (9.4-12.3) fL Immature Gran % (Auto) 0.4 % Neut % (Auto) 83.8 % Lymph % (Auto) 8.4 % Frontier % (Auto) 6.4 % Eos % (Auto) 0.8 % Baso % (Auto) 0.2 % Neut # (Auto) 7.76 H (1.4-6.5) K/uL Lymph # (Auto) 0.78 L (1.2-3.4) K/uL Frontier # (Auto) 0.59 (0.24-0.82) K/uL Eos # (Auto) 0.07 (0-0.50) K/uL Baso # (Auto) 0.02 (0-0.2) K/uL Immature Gran # (Auto) 0.04 H (0.00-0.02) K/uL POC Sodium (135-144) mmol/L Sodium (136-145) mmol/L POC Potassium (3.3-5.0) mmol/L Potassium (3.5-5.1) mmol/L POC Chloride (101-112) mmol/L Chloride (98-107) mmol/L Carbon Dioxide (21-32) mmol/L POC Total CO2 (24-31) mmol/L Anion Gap (3-11) POC Anion Gap (16-25) mmol/L POC BUN (7-18) mg/dl BUN (6-23) mg/dl Creatinine (0.6-1.2) mg/dl POC Creatinine (0.6-1.3) mg/dl Est Cr Clr Drug Dosing ml/min Est GFR ( Amer) ml/min Est GFR (Non-Af Amer) ml/min BUN/Creatinine Ratio (10-20) Glucose (70-99(Fasting)) mg/dl POC Glucose (other) (70-99) mg/dl Calcium (8.5-10.1) mg/dl POC Ioniz Calcium Dona (1.12-1.32) mmol/l Phosphorus (2.5-4.9) mg/dl Magnesium (1.7-2.4) mg/dl Total Bilirubin (0.2-1.0) mg/dl AST (13-39) U/L ALT (7-52) U/L Alkaline Phosphatase (34-104) U/L Total Protein (6.0-8.3) gm/dl Albumin (3.4-5.0) gm/dl Globulin (2.5-4.0) gm/dl Albumin/Globulin Ratio (0.9-2) Lipase (11-82) U/L Urine Color Urine Appearance (Clear) Urine pH (4.5-7.5) Ur Specific [place] (1.000-1.030) Urine Protein (Negative) Urine Glucose (UA) (Negative) Urine Ketones (Negative) Urine Blood (Negative) Urine Nitrite (Negative) Urine Bilirubin (Negative) Urine Urobilinogen (Negative) Ur Leukocyte Esterase (Negative) Urine WBC (Auto) (0-5) /hpf Urine RBC (Auto) (0-4) /hpf U Hyaline Cast (Auto) (0-5) /lpf U Epithel Cells (Auto) (0-5) /lpf Urine Bacteria (Auto) (Negative) SARS-CoV-2, RNA, NAAT (NEGATIVE) Diagnostic Findings ABDOMEN AND PELVIS CT WITH IV CONTRAST CT DOSE: 732.21 mGy.cm HISTORY: Acute generalized abdominal pain abd TECHNIQUE: Multiaxial CT images of the abdomen and pelvis were performed following the IV administration of 93 cc of Optiray, A dose lowering technique was utilized adhering to the principles of ALARA. COMPARISON STUDY: None. FINDINGS: Clear lung bases. No pneumatosis or pneumoperitoneum identified. The spleen, pancreas and adrenal glands are unremarkable. Cholecystectomy. Mild, duct dilation, likely postsurgical. Hepatic steatosis. No evidence of cirrhosis. Patent portal vein. 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 No urolith or hydronephrosis. Partial distention of the urinary bladder. Hysterectomy. No adnexal mass lesions. No abdominal aortic aneurysm or lymphadenopathy. The majority of the large bowel is decompressed. The appendix is not definitively seen. Mural fibrofatty changes of the terminal ileum which is also decompressed. There are a few dilated air and fluid-filled and stool-filled loops of small bowel within the lower abdomen and pelvis, the most dilated loop measuring 4.5 cm transversely on image 361. This just proximal to angular transition point within the abdominal left lower quadrant on image 307. Mild interloop edema. A few small bowel loops demonstrate mildly thickened rodríguez. Unremarkable soft tissues. No acute fracture. IMPRESSION: 1. At least moderate grade small bowel obstruction with transition point within the abdominal left lower quadrant, likely secondary to small bowel adhesions. 2. Mild interloop edema with a few loops of small bowel demonstrating mild wall thickening. 3. No pneumoperitoneum. 4. Hepatic steatosis. 5. Cholecystectomy.
--- NOTE | 2022-07-07 17:35 | Discharge Summary ---
Date of Service July 07, 2022 Admission HPI Per Admitting Provider This is 62-year-old female with a history of Crohn's disease, appendectomy, cholecystectomy, hysterectomy, known abdominal adhesions, prior SBOs, hypothyroidism per her report who presented to [facility] for evaluation of abdominal pain. Patient says that beginning last night, she began having twinges of abdominal pain and intermittent nausea. She was up visiting with her parents for the football game this weekend, when she gradually developed a worse and worse abdominal pain. She said that prior to coming in, it was near a 10 out of 10. Unfortunately, she reports a history of multiple small bowel obstructions; at her local ED at home, she is normally able to receive pain medications and be discharged from the ED without being admitted. This time, however, despite pain medications received in the ED, she continues to have abdominal pain and nausea. The pain is generalized. Her last bowel movement was yesterday. She denies any recent fevers, chills, night sweats, chest pain, palpitations, shortness of breath, urinary issues, bowel issues. Medications reviewed and include azathioprine, calcium carbonate, FiberCon, vitamin D3, estradiol, folic acid, glucosamine, probiotic, lansoprazole, levothyroxine, fish oil, MiraLAX, pravastatin, Entyvio every 8 weeks. She denies regular use of alcohol. She had 2 alcoholic beverages earlier today. She denies use of recreational drugs or tobacco products. In the ED, patient was found to be mildly hypertensive with a heart rate of 104. Afebrile. Labs demonstrated mildly elevated anion gap at 13, but otherwise without significant abnormalities. Contrast-enhanced CT of the abdomen and pelvis demonstrated moderate grade small bowel obstruction with transition point within the left lower quadrant, interloop edema. She was given Zofran, morphine, 1 L NSS, promethazine. ED provider spoke with on-call general surgery, who agreed to see patient in the morning. After speaking with her more, she was amenable to receive an NG tube. Patient did mention to me that this will likely be the last game her parents are able to go to, and would optimally like to leave as soon as medically stable and pain is under control. Principal Diagnosis Small bowel obstruction resolved COVID-positive status Discharge Exam The patient appeared stable Vital signs as documented. Lungs are clear to auscultation and appear unlabored Cardiac exam, Rhythm is regular.. No murmurs, rubs or gallops. Abdominal exam reveals normal bowel sounds, soft non tender, no masses Extremities are nonedematous and both pedal pulses are normal. Neurologic exam is alert and oriented, no focal loss of strength or sensation Skin is without bruises or rashes Psychologically is without concerns for anxiety or depression. Discharge Data Allergies Allergy/AdvReac Type Severity Reaction Status Date / Time No Known Allergies Allergy Unverified 07/06/22 23:32 Consultations 07/06/22 23:35 Consult General Surgery Routine 07/07/22 00:03 ED Decision to Admit Stat Ordered Studies 07/06/22 21:58 CT Abd and Pelvis [CT abd pelvis IV con only] Stat Hospital Course (1) Small bowel obstruction: This is 62-year-old female with a history of Crohn's disease, appendectomy, cholecystectomy, hysterectomy, known abdominal adhesions, prior SBOs, hypothyroidism per her report who presented to [facility] for evaluation of abdominal pain, subsequently found to have moderate-grade SBO on CT-A/P likely secondary to abdominal adhersions. Small Bowel Obstruction Patient with significant history of prior SBOs at home, appendectomy, cholecystectomy, hysterectomy, Crohn's disease, and known abdominal adhesions Contrast-enhanced CT of the abdomen and pelvis demonstrated moderate grade small bowel obstruction with transition point within the left lower quadrant, interloop edema. pt with 2 large bowel movements, did tolerate clear liquid intake, the pt asked to be discharged as she is from [place] and wants to return to her home, since can tolerate po, will d/c with covid isolation recommendations (2) Crohn's disease: Controlled on Entyvio every 8 weeks, as well as azathioprine (3) Hypothyroid: levothyroxine, (4) Hyperlipidemia: pravastatin Patient dose have known history of NAFLD Plan Code: Full code Total Time Total Time Spent Total Time Spent (In Minutes): It required greater than 30 minutes to prepare this patient for discharge Discharge Plan Discharge Items Patient Disposition: Home - Self-Care Reason For Visit: SBO Discharge Diagnosis: small bowel obstruction resolved Activity: Resume your previous activity Non-emergency contact: Primary Care Provider Call non-emergency contact if: your symptoms worsen Follow-up/Referrals: PCP,NO [Primary Care Provider] - Diet: Full liquid Diet Comment: Liquid diet for next 24 hours then advance Addtl Attending Provider Instructions: please isolate from covid for 5 days at the minimum, then is symptom free ret est, if negative you may be released from isolation if positive but symptom free isolate for 10 days liquid diet for another day then advance diet Pending Studies at Discharge: No Stand-Alone Forms: [facility], Smoking Cessation Medications and DC Order Prescriptions: Continued pravastatin 40 mg Tablet 40 mg PO HS azathioprine 50 mg tablet 150 mg PO QAM levothyroxine 150 mcg tablet 150 mcg PO DAILYBB lansoprazole 15 mg Capsule,Delayed Release(Dr/Ec) 15 mg PO QAM estradiol 0.5 mg Tablet 0.5 mg PO QAM folic acid 800 mcg Tablet 0.8 mg PO HS cholecalciferol (vitamin D3) [Vitamin D3] 25 mcg (1,000 unit) Tablet,Chewable 25 mcg PO HS calcium polycarbophil [FiberCon] 625 mg Tablet 1,250 mg PO QAM polyethylene glycol 3350 [Miralax] 17 gram/dose Powder 17 g PO QAM calcium carbonate 600 mg calcium (1,500 mg) Tablet 600 mg PO HS glucosamine-chondroitin 750-600 mg Tablet 1 tab PO HS omega-3 fatty acids 1,250 mg Capsule 1,250 mg PO HS Florajen Digestion 15 billion cell Capsule 1 cap PO QAM Entyvio 300 mg Recon Soln 300 mg IV .EVERY 8 WEEKS Discharge Orders: Discharge Order (Routine); Ordered 07/07/22 Ordered By: Yeyo Lomas Admission Data Admit Date/Time: 07/06/22 23:35 Attending Provider: Yeyo Lomas Admit Provider: Kirt Parson Primary Care Provider: PCP,NO Other Providers: Presley Stubbs ; Boris Hernandez ; Angel Bryant ; Saji Hsu Jr ; Moe Gallagher ; Ayush Heredia ; Katharine Ingram ; Rex Clements ; Jm Mckeno ; Stephenie Foy Other Interventions: Discharge Summary Assessment (RN) Last Done: 07/07/22 13:57 Coding Level of Care Code D/C DAY MANAGEMENT >30 MINS Diagnoses Small bowel obstruction K56.609 Crohn's disease K50.90 Hypothyroid E03.9 Hyperlipidemia E78.5
== END 2022-07-07 14:36 | disposition home or self-care (01) | DRG 385 ==
LOC: ED 21:31 → 3E 23:35 → SUATTDRO 23:35 → 3E 07-07 01:15